=== PATIENT | female | born 1985 | race Caucasian/White ===

== ENCOUNTER 2016-08-02 05:58 | Emergency (ER) | payer BC ==
--- NOTE | 2016-08-02 06:54 | ED ---
Lower Extremity - HPI Summary HPI Summary: Pt here w/ LLE pain which started last night. Feels this in her Lt hip/groin area and it radiates down behind knee most prominently and continues down to ankle. She denies injury here and reports nothing exacerbates or alleviates sx. Tried a vicodin last night which she had left over from a visit here a few days ago for Lt sided ab pain. She has f/u for this w/ PCP in a couple of days - PCP believes she has IBS and pt has switched to a bland diet to help alleviate her GI sx (ie. indigestion, bloating, constipation alternating w/ diarrhea, etc) - better since adjusting diet. 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 No known h/o DDD or other FABIOLA injuries. She is concerned about a potential clot in her leg as she takes OBC's. Denies fever, chills, vomiting, chest pain, SOB, bleeding, bruising, back pain, dysuria, urinary frequency, flank pain, vaginal d/c . She has had nausea around her GI issues but again, reports this is better since changing diet. LMP - on this now. - History of Current Complaint Chief Complaint: EDExtremityLower Stated Complaint: LT LEG PAIN Time Seen by Provider: 08/02/16 06:35 Hx Obtained From: Patient Hx Last Menstrual Period: 1 week ago Pain Intensity: 6 - Allergies/Home Medications Allergies/Adverse Reactions: Allergies Allergy/AdvReac Type Severity Reaction Status Date / Time Prednisone Allergy See Comment Verified 07/29/16 12:01 Ibuprofen AdvReac Mild stomach Verified 07/29/16 12:01 ulcers PMH/Surg Hx/FS Hx/Imm Hx Previously Healthy: Yes Endocrine/Hematology History: Denies: Hx Anticoagulant Therapy, Hx Blood Disorders, Hx Diabetes, Hx Thyroid Disease, Hx Coagulopothy Cardiovascular History: Denies: Hx Hypertension Respiratory History: Denies: Hx Asthma, Hx Chronic Obstructive Pulmonary Disease (COPD) GI History: Reports: Hx Gastroesophageal Reflux Disease, Hx Irritable Bowel - currently being worked up by PCP Denies: Hx Ulcer Sensory History: Reports: Hx Contacts or Glasses Opthamlomology History: Reports: Hx Contacts or Glasses Psychiatric History: Reports: Hx Anxiety - high level of work stress; stress limited to the work place. - Surgical History Surgery Procedure, Year, and Place: Gall Bladder 2003 - Immunization History Date of Tetanus Vaccine: up to date per pt Date of Influenza Vaccine: this season Infectious Disease History: No Infectious Disease History: Denies: Hx Clostridium Difficile, Hx Hepatitis, Hx Human Immunodeficiency Virus (HIV), Hx of Known/Suspected MRSA, Hx Shingles, Hx Tuberculosis, History Other Infectious Disease, Traveled Outside the [place] in Last 30 Days - Family History Known Family History: Positive: Other - GM (smoker) of lung cancer; parents alive and well Negative: Cardiac Disease, Hypertension, Diabetes - Social History Occupation: Employed Full-time Lives: Alone Alcohol Use: Rare - couple times a year Hx Substance Use: No Substance Use Type: Reports: None Hx Tobacco Use: No Smoking Status (MU): Never Smoked Tobacco Have You Smoked in the Last Year: No Review of Systems Constitutional: Negative ENT: Negative Cardiovascular: Negative Respiratory: Negative Gastrointestinal: Other - see HPI Genitourinary: Negative Positive: see HPI Musculoskeletal: Other - see HPI Skin: Negative Neurological: Negative Psychological: Normal - concerned All Other Systems Reviewed And Are Negative: Yes Physical Exam Triage Information Reviewed: Yes Vital Signs On Initial Exam: Initial Vitals Temp Pulse Resp BP Pulse Ox 97.7 F 100 18 123/88 100 08/02/16 06:23 08/02/16 06:23 08/02/16 06:23 08/02/16 06:23 08/02/16 06:23 Vital Signs Reviewed: Yes Appearance: Positive: Well-Appearing, No Pain Distress, Well-Nourished Skin: Positive: Warm, Dry - no erythema, no ecchymosis, no lesions over affected area Head/Face: Positive: Normal Head/Face Inspection Eyes: Positive: Normal, EOMI, Conjunctiva Clear - anicteric sclera ENT: Positive: Normal ENT inspection, Hearing grossly normal, Pharynx normal - mucosa moist Respiratory/Lung Sounds: Positive: Clear to Auscultation, Breath Sounds Present. Negative: Rales, Rhonchi, Wheezes Cardiovascular: Positive: Normal, RRR, Pulses are Symmetrical in both Upper and Lower Extremities, S1, S2. Negative: Murmur, Rub, Leg Edema Left, Leg Edema Right Abdomen Description: Positive: No Organomegaly, Soft, Other: - generalized TTP ( mild) - no rebounding - abdominal palpation does not exacerbate LLE pain. Negative: CVA Tenderness (R), CVA Tenderness (L), Guarding Bowel Sounds: Positive: Present Musculoskeletal: Positive: Normal, Strength/ROM Intact, Pain @ - TTP over muscles of Lt lumbar region, Lt thigh and calf along LLE; pain also enhanced to a mild degree by hip rotation w/ knee flexed however pt still tolerates this well; weight bearing well; spinous pp NTTP; greater trochnater NTTP; knee w/o edema or gross deformity - no pain w/ flexin/extension; FROM ankle w/o pain Neurological: Positive: Normal, Sensory/Motor Intact, Alert, Oriented to Person Place, Time, CN Intact II-III Psychiatric: Positive: Other - blunted affect Diagnostics - Vital Signs Vital Signs Temp Pulse Resp BP Pulse Ox 08/02/16 06:23 97.7 F 100 18 123/88 100 - Laboratory Lab Statement: Any lab studies that have been ordered have been reviewed, and results considered in the medical decision making process. Lower Extremity Course/Dx - Course Course Of Treatment: no DVT on U/S - suspect muscle strain. See d/c instructions for details on care. Reviewed danger s/sx of when to return to ED. - Diagnoses Provider Diagnoses: Muscle strain Discharge - Discharge Plan Condition: Stable Disposition: HOME Prescriptions: Cyclobenzaprine TAB* [Flexeril TAB*] 10 mg PO TID PRN #15 tab PRN Reason: Pain Patient Education Materials: Muscle Strain (ED) Referrals: Garfield Solorio MD [Primary Care Provider] - Additional Instructions: Heat in the morning with gentle stretches - ice after use. You may take acetaminophen during the day and flexeril (a muscle relaxer) at night to reduce symptoms however best care will be follow-up with PCP as you may benefit from physical therapy if symptoms persist. *If you develop vomiting, change in bowel habits, weakness, fever and/or chest pain, return to ED
--- NOTE | 2016-08-02 08:12 | RAD ---
INDICATION: Atraumatic left lower extremity pain. COMPARISON: There are no prior studies available for comparison. TECHNIQUE: Multiple real-time, color flow and Doppler tracings of the left lower extremity were obtained. FINDINGS: The common femoral, femoral, profunda femoral and popliteal veins all demonstrate normal compressibility, augmentation with compression and phasic response with respiration. The posterior tibial and peroneal veins demonstrate normal compressibility and augmentation with compression. IMPRESSION: NO EVIDENCE FOR DEEP VENOUS THROMBOSIS.
[2016-08-02 08:44] VITALS: BP 128/88
== END 2016-08-02 08:44 | disposition home or self-care (01) ==
LOC: ED 05:58
DX: S73.102A Unspecified sprain of left hip, initial encounter (principal); X58.XXXA Exposure to other specified factors, initial encounter; Y92.9 Unspecified place or not applicable
CPT/HCPCS: 99282

== ENCOUNTER 2016-09-25 16:41 | Emergency (ER) | payer BC ==
[2016-09-25 16:57] VITALS: BP 114/77
[2016-09-25] MEDS ORDERED: Acetaminophen TAB* 325 MG PO ONE (19:25)
--- NOTE | 2016-09-25 19:27 | UC ---
FLU HPI - HPI Summary HPI Summary: Sore throat and chest congestion for 1 day - History of Current Complaint Chief Complaint: UCRespiratory Stated Complaint: COUGH, SORE THROAT Time Seen by Provider: 09/25/16 19:16 Hx Obtained From: Patient Hx Last Menstrual Period: [id number] ?: No Onset/Duration: Sudden Onset, Lasting Days - 1, Still Present Severity Currently: Mild Severity Initially: Mild Pain Intensity: 3 Associated Signs & Symptoms: Positive: Cough - chest congestion, Sore Throat - Allergy/Home Medications Allergies/Adverse Reactions: Allergies Allergy/AdvReac Type Severity Reaction Status Date / Time Prednisone Allergy See Comment Verified 09/25/16 16:58 Ibuprofen AdvReac Mild stomach Verified 09/25/16 16:58 ulcers Home Medications: Home Medications ALPRAZolam TAB* [Xanax TAB*] 2 PRN 09/25/16 [History] FLUoxetine CAP* [Prozac CAP*] 2 09/25/16 [History] traZODone TAB* [Desyrel TAB*] 1 09/25/16 [History] PMH/Surg Hx/FS Hx/Imm Hx Endocrine History Of: Denies: Diabetes, Thyroid Disease Cardiovascular History Of: Denies: Cardiac Disorders, Hypertension Respiratory History Of: Denies: COPD, Asthma GI/ History Of: Reports: Gastroesophageal Reflux - history of reflux x years, with 2 past upper endoscopies. Has been on PPI's Denies: Ulcer Psychological History Of: Reports: Anxiety - high level of work stress; stress limited to the work place. Other History Of: Negative For: Anticoagulant Therapy - Surgical History Surgical History: Yes Surgery Procedure, Year, and Place: Gall Bladder 2003 - Family History Known Family History: Positive: None - parents alive and well., Other - GM ( smoker) of lung cancer; parents alive and well Negative: Cardiac Disease, Hypertension, Diabetes - Social History Occupation: Employed Full-time - Deli at [employer] Lives: With Family Alcohol Use: Rare Substance Use Type: None Smoking Status (MU): Never Smoked Tobacco Have You Smoked in the Last Year: No Household Exposure Type: Cigarettes - Immunization History Most Recent Influenza Vaccination: 08/13/2013 Review of Systems Constitutional: Negative Skin: Negative Eyes: Negative ENT: Sore Throat Respiratory: Cough Cardiovascular: Negative Gastrointestinal: Negative Genitourinary: Negative Motor: Negative Neurovascular: Negative Musculoskeletal: Negative Neurological: Negative Psychological: Negative All Other Systems Reviewed And Are Negative: Yes Physical Exam Triage Information Reviewed: Yes Appearance: Well-Appearing, Well-Nourished, Pain Distress - mild Vital Signs: Initial Vital Signs Temp 100.4 F 09/25/16 16:52 Pulse 76 09/25/16 16:52 Resp 18 09/25/16 16:52 BP 114/77 09/25/16 16:52 Pulse Ox 100 09/25/16 16:52 Vital Signs Reviewed: Yes Eye Exam: Normal Eyes: Positive: Conjunctiva Clear ENT Exam: Normal ENT: Positive: Normal ENT inspection, Hearing grossly normal, Pharynx normal, TMs normal. Negative: Nasal congestion, Nasal drainage, Tonsillar swelling, Tonsillar exudate, Trismus, Muffled/hoarse voice Dental Exam: Normal Neck exam: Normal Neck: Positive: Supple, Nontender, No Lymphadenopathy Respiratory Exam: Normal Respiratory: Positive: Chest non-tender, Lungs clear, Normal breath sounds, No respiratory distress, No accessory muscle use Cardiovascular Exam: Normal Cardiovascular: Positive: RRR, No Murmur, Pulses Normal, Brisk Capillary Refill Musculoskeletal Exam: Normal Musculoskeletal: Positive: Strength Intact, ROM Intact, No Edema Neurological Exam: Normal Neurological: Positive: Alert, Muscle Tone Normal Psychological Exam: Normal Psychological: Positive: Normal Response To Family Skin Exam: Normal Diagnostics - Laboratory Diagnostic Studies Completed/Ordered: RST(-) Influenza A/B(-) Flu Course/Dx - Course Course Of Treatment: increase fluids, rest tylenol, follow with pcp - Differential Dx/Diagnosis Differential Diagnosis/HQI/PQRI: Bronchitis, Broncholiolitis, Upper Respiratory Infection Provider Diagnoses: URI Discharge - Discharge Plan Condition: Stable Disposition: HOME Patient Education Materials: Acetaminophen (By mouth), Antitussives (By mouth) , Upper Respiratory Infection (ED), Cold Symptoms (ED), Acute Cough (ED) Forms: *Work Release Referrals: Garfield Solorio MD [Primary Care Provider] - If Needed
== END 2016-09-25 20:04 | disposition home or self-care (01) ==
LOC: UCEAST 16:41
DX: J06.9 Acute upper respiratory infection, unspecified (principal); K21.9 Gastro-esophageal reflux disease without esophagitis
CPT/HCPCS: 87502; 87651; 99212; A9270-GY; G0463

== ENCOUNTER 2017-03-14 07:53 | Emergency (ER) | payer BC ==
[2017-03-14 08:07] VITALS: BP 122/82
--- NOTE | 2017-03-14 14:54 | UC ---
Moises Levy Angela, scribed for Dong Bianchi MD on 03/14/17 at 1445 . General HPI - HPI Summary HPI Summary: This pt is a 32 y/o female presenting to [facility] c/o sore throat x2 days. She notes her sore throat has been worsening and this morning she had diarrhea, nausea, and light-headedness. She notes 4-5 episodes of diarrhea, non-bloody. Pt denies vomiting, abdominal pain, nasal congestion, myalgia, recent long travel, sick contacts. Pt notes she has flu-like symptoms. - History of Current Complaint Stated Complaint: SORE THROAT Hx Obtained From: Patient Hx Last Menstrual Period: 03/06/17 Onset/Duration: Lasting Days Timing: Constant Associated Signs & Symptoms: Positive: Diarrhea, Nausea. Negative: Abdominal Pain, Cough, Fever, Vomiting - Allergy/Home Medications Allergies/Adverse Reactions: Allergies Allergy/AdvReac Type Severity Reaction Status Date / Time Prednisone Allergy See Comment Verified 03/14/17 08:01 Ibuprofen AdvReac Mild stomach Verified 03/14/17 08:01 ulcers Home Medications: Home Medications Acetaminophen TAB* [Tylenol TAB*] 650 mg PO Q6H PRN 03/14/17 [History Confirmed 03/14/17] Desogestrel & Ethinyl Estradio [Juleber 0.15-30 mg-Mcg] 1 tab PO DAILY 03/14/17 [History Confirmed 03/14/17] PMH/Surg Hx/FS Hx/Imm Hx Other History Of: Negative For: Anticoagulant Therapy - Surgical History Surgical History: Yes Surgery Procedure, Year, and Place: Gall Bladder 2003 - Family History Known Family History: Positive: None - parents alive and well., Other - GM ( smoker) of lung cancer; parents alive and well Negative: Cardiac Disease, Hypertension, Diabetes - Social History Alcohol Use: Rare Substance Use Type: None Smoking Status (MU): Never Smoked Tobacco Have You Smoked in the Last Year: No Household Exposure Type: Cigarettes - Immunization History Most Recent Influenza Vaccination: 04/2016 Review of Systems Constitutional: Negative Skin: Negative Eyes: Negative ENT: Sore Throat Respiratory: Negative Gastrointestinal: Diarrhea, Nausea Motor: Negative Musculoskeletal: Negative Neurological: Negative All Other Systems Reviewed And Are Negative: Yes Physical Exam Triage Information Reviewed: Yes Vital Signs: Initial Vital Signs Temp 98.4 F 03/14/17 08:03 Pulse 89 03/14/17 08:03 Resp 16 03/14/17 08:03 BP 122/82 03/14/17 08:03 Pulse Ox 99 03/14/17 08:03 Vital Signs Reviewed: Yes - Additional Comments The patient is well-nourished in no acute distress and in no acute pain. The skin is warm and dry and skin color reflects adequate perfusion. HEENT: The head is normocephalic and atraumatic. The pupils are equal and reactive. The conjunctivae are clear and without drainage. Nares are patent and without drainage. Mouth reveals moist mucous membranes. The uvula is swollen. The external ears are intact. The ear canals are patent and without drainage. The tympanic membranes are intact. Neck is supple with full range of motion and non-tender. There is bilateral cervical adenopathy. Respiratory: Chest is non-tender. Lungs are clear to auscultation and breath sounds are symmetrical and equal. Cardiovascular: Hear is regular rate and rhythm. There is no murmur or rub auscultated. There is no peripheral edema and pulses are symmetrical and equal. Abdomen: The abdomen is soft and non-tender. Musculoskeletal: There is no back pain noted. Extremities are non-tender with full range of motion. There is good capillary refill. Neurological: Patient is alert and oriented to person, place and time. The patient has symmetrical motor strength in all four extremities. Psychiatric: The patient has an appropriate affect and does not exhibit any anxiety or depression. Course/Dx - Course Course Of Treatment: Strep test was negative. Pt will be discharged with amoxicillin. - Differential Dx - Multi-Symptom Provider Diagnoses: Phargyngitis. Discharge - Discharge Plan Condition: Stable Disposition: HOME Prescriptions: Amoxicillin PO (*) [Amoxicillin 500 MG CAP*] 500 mg PO TID #30 cap Patient Education Materials: Pharyngitis (ED) Referrals: Garfield Solorio MD [Primary Care Provider] - Additional Instructions: Please follow up with your PCP to make sure your symptoms are improving. The documentation as recorded by the Moises gannon Angela accurately reflects the service I personally performed and the decisions made by me, Dong Bianchi MD.
== END 2017-03-14 08:51 | disposition home or self-care (01) ==
LOC: UCEAST 07:53
DX: J02.9 Acute pharyngitis, unspecified (principal); Z88.6 Allergy status to analgesic agent; Z88.9 Allergy status to unspecified drugs, medicaments and biological substances
CPT/HCPCS: 87651; 99212; G0463

== ENCOUNTER 2017-05-19 07:55 | Emergency (ER) | payer BC ==
[2017-05-19 08:01] VITALS: BP 132/78
--- NOTE | 2017-05-19 09:12 | RAD ---
Indication: RIGHT heel pain for one week now going up calf. Comparison: None. Technique: AP, lateral, and oblique views RIGHT foot. REPORT AND IMPRESSION: Normal articular alignment and preserved joint spaces. Negative for fracture or radiographic stigmata of stress reaction. Small plantar fascia origin bone spur. Mild soft tissue swelling at the plantar aspect of the foot.
--- NOTE | 2017-05-19 09:45 | RAD ---
INDICATION: RIGHT heel pain radiates up catheter. COMPARISON: No relevant prior exams available on the [facility] PACS for comparison. TECHNIQUE: Gaitan scale, color Doppler, and spectral analysis of the deep veins of the RIGHT lower extremity. Vessel compression, phasicity, and augmentation assessed. REPORT: The RIGHT common femoral, great saphenous, profunda femoral, femoral, popliteal, peroneal, and posterior tibial veins are patent. Patency of the LEFT common femoral vein documented. IMPRESSION: No evidence for RIGHT lower extremity deep venous thrombosis.
[2017-05-19] MEDS ORDERED: HYDROcodone/ACETAMIN 5-325 MG* 1 TAB PO ONE (10:34)
--- NOTE | 2017-05-21 08:06 | ED ---
Moises Levy Angela, scribed for Krunal Agudelo MD on 05/19/17 at 0841 . Lower Extremity - HPI Summary HPI Summary: This pt is a 32 y/o female [place] [facility] [place]/o atraumatic right heel pain x1 week. Pt reports that her pain now shoots up her right calf. Her pain is aggravated when bearing weight. She denies any trauma to her foot, weakness or numbness. Pt denies hx of heel spurs. Pt is currently on control pills, prozac, and xanax (PRN), protonix, trazodone. PSHx: cholecystectomy. Allergies: ibuprofen and prednisone. - History of Current Complaint Chief Complaint: EDExtremityLower Stated Complaint: RT FOOT/LEG PAIN Time Seen by Provider: 05/19/17 08:19 Hx Obtained From: Patient Hx Last Menstrual Period: 03/06/17 Mechanism Of Injury: Unknown Onset of Pain: Days Onset/Duration: Days Severity Currently: Moderate Pain Intensity: 7 Pain Scale Used: 0-10 Numeric Timing: Constant, Lasting Days Location: Radiates To - right calf Associated Signs And Symptoms: Negative: Knee Pain Aggravating Factor(s): Weight Bearing Alleviating Factor(s): Nothing Able to Bear Weight: Yes - Allergies/Home Medications Allergies/Adverse Reactions: Allergies Allergy/AdvReac Type Severity Reaction Status Date / Time Prednisone Allergy See Comment Verified 03/14/17 08:01 Ibuprofen AdvReac Mild stomach Verified 03/14/17 08:01 ulcers PMH/Surg Hx/FS Hx/Imm Hx Endocrine/Hematology History: Denies: Hx Anticoagulant Therapy, Hx Blood Disorders, Hx Diabetes, Hx Thyroid Disease Cardiovascular History: Denies: Hx Hypertension Respiratory History: Denies: Hx Asthma, Hx Chronic Obstructive Pulmonary Disease (COPD) GI History: Reports: Hx Gastroesophageal Reflux Disease, Hx Irritable Bowel - currently being worked up by PCP Denies: Hx Ulcer Sensory History: Reports: Hx Contacts or Glasses Opthamlomology History: Reports: Hx Contacts or Glasses Psychiatric History: Reports: Hx Anxiety - high level of work stress; stress limited to the work place. - Surgical History Surgery Procedure, Year, and Place: Gall Bladder 2003 - Immunization History Date of Tetanus Vaccine: up to date per pt Date of Influenza Vaccine: this season Infectious Disease History: No Infectious Disease History: Denies: Hx Clostridium Difficile, Hx Hepatitis, Hx Human Immunodeficiency Virus (HIV), Hx of Known/Suspected MRSA, Hx Shingles, Hx Tuberculosis, History Other Infectious Disease, Traveled Outside the [place] in Last 30 Days - Family History Known Family History: Positive: Other - GM (smoker) of lung cancer; parents alive and well Negative: Cardiac Disease, Hypertension, Diabetes - Social History Alcohol Use: Rare Hx Substance Use: No Substance Use Type: Reports: None Hx Tobacco Use: No Smoking Status (MU): Never Smoked Tobacco Have You Smoked in the Last Year: No Review of Systems Negative: Fever, Chills Eyes: Negative ENT: Negative Cardiovascular: Negative Respiratory: Negative Genitourinary: Negative Positive: Other - right heel pain, right calf pain Skin: Negative Negative: Headache, Weakness, Numbness All Other Systems Reviewed And Are Negative: Yes Physical Exam - Summary Physical Exam Summary: VITAL SIGNS: Reviewed. GENERAL: Patient is a well-developed and nourished female who is lying comfortable in the stretcher. Patient is not in any acute respiratory distress. HEAD AND FACE: No signs of trauma. No ecchymosis, hematomas or skull depressions. No sinus tenderness. EYES: PERRLA, EOMI x 2, No injected conjunctiva, no nystagmus. EARS: Hearing grossly intact. Ear canals and tympanic membranes are within normal limits. MOUTH: Oropharynx within normal limits. NECK: Supple, trachea is midline, no adenopathy, no JVD, no carotid bruit, no c- spine tenderness, neck with full ROM. CHEST: Symmetric, no tenderness at palpation LUNGS: Clear to auscultation bilaterally. No wheezing or crackles. CVS: Regular rate and rhythm, S1 and S2 present, no murmurs or gallops appreciated. ABDOMEN: Soft, non-tender. No signs of distention. No rebound no guarding, and no masses palpated. Bowel sounds are normal. EXTREMITIES: FROM in all major joints, no edema, no cyanosis or clubbing. There is positive right calf pain. There is positive Homans's sign. Positive right heel pain. NEURO: Alert and oriented x 3. No acute neurological deficits. Speech is normal and follows commands. SKIN: Dry and warm Triage Information Reviewed: Yes Vital Signs On Initial Exam: Initial Vitals Temp Pulse Resp BP Pulse Ox 98.1 F 94 20 132/78 97 05/19/17 07:58 05/19/17 07:58 05/19/17 07:58 05/19/17 07:58 05/19/17 07:58 Vital Signs Reviewed: Yes Diagnostics - Vital Signs Vital Signs Temp Pulse Resp BP Pulse Ox 05/19/17 07:58 98.1 F 94 20 132/78 97 - Laboratory Lab Statement: Any lab studies that have been ordered have been reviewed, and results considered in the medical decision making process. - Radiology Right Foot XR Xray Interpretation: Positive (See Comments) - IMPRESSION: Normal articular alignment and preserved joint spaces. Negative for fracture or radiographic stigmata of stress reaction. Small plantar fascia origin bone spur. Mild soft tissue swelling at the plantar aspect of the foot. ED physician has reviewed this radiology report and agrees. Radiology Interpretation Completed By: Radiologist - Additional Comments Diagnostic Additional Comments: Venous Doppler Study (RIGHT), per radiologist: IMPRESSION: No evidence for RIGHT lower extremity deep venous thrombosis. ED physician has reviewed this radiology report and agrees. Re-Evaluation - Re-Evaluation First Eval Re-Evaluation Time: 10:36 Comment: I reviewed the XR and US results with the pt. Lower Extremity Course/Dx - Course Assessment/Plan: This pt is a 32 y/o female presenting to [facility] c/o atraumatic right heel pain x1 week. Pt reports that her pain now shoots up her right calf. Her pain is aggravated when bearing weight. She denies any trauma to her foot, weakness or numbness. Pt denies hx of heel spurs. Pt is currently on control pills, prozac, and xanax (PRN), protonix, trazodone. XR of the right foot shows no fracture or dislocations. Ultrasound is negative for DVT. I believe her pain is secondary to plantar fasciitis. However, the pt is allergic to prednisone and NSAIDs, therefore, she was given 1 tablet for [place]. Pt will be discharged home with follow up from her PCP. She was advised to use ice her RLE. Pt is hemodynamically stable, alert and oriented x3. PSHx: cholecystectomy. Allergies: ibuprofen and prednisone. - Diagnoses Differential Diagnosis/HQI/PQRI: Positive: Cellulitis, Contusion, DVT, Foreign Body, Fracture (Closed), Infection, Sprain, Strain, Tendonitis Provider Diagnoses: Plantar fasciitis Discharge - Discharge Plan Condition: Stable Disposition: HOME Prescriptions: HYDROcodone/ACETAMIN 5-325 MG* [[place] 5-325 TAB*] 1 tab PO Q6H PRN #12 tab MDD 4 PRN Reason: Pain Patient Education Materials: Plantar Fasciitis (ED) Referrals: Garfield Solorio MD [Primary Care Provider] - Additional Instructions: Please follow up with your primary care provider. The documentation as recorded by the Moises gannon Angela accurately reflects the service I personally performed and the decisions made by , Krunal Agudelo MD.
== END 2017-05-19 11:00 | disposition home or self-care (01) ==
LOC: ED 07:55
DX: M72.2 Plantar fascial fibromatosis (principal)
CPT/HCPCS: 99282

== ENCOUNTER 2017-08-21 10:18 | Emergency (ER) | payer BC ==
[2017-08-21 10:33] VITALS: BP 118/73
--- NOTE | 2017-08-21 11:09 | UC ---
Back Pain HPI - HPI Summary HPI Summary: Pt presents with low back pain. She tells me that 2 days ago, while working, she developed lower back pain. 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 She has been taking tylenol for pain with minimal relief. Tells me that she cannot take NSAIDs due to hx of stomach ulcer. No bowel or bladder dysfunction. Denies fever, chills, SOB, chest pain, abdominal pain, n/v/d/c, dysuria, hematuria, flank pain, numbness, tingling, or radiation of symptoms. - History of Current Complaint Chief Complaint: UCBackPain Stated Complaint: BACK PAIN Time Seen by Provider: 08/21/17 10:51 Hx Obtained From: Patient Hx Last Menstrual Period: 07/16 Onset/Duration: Gradual Onset Timing: Constant Severity Initially: Moderate Severity Currently: Moderate Pain Intensity: 8 Pain Scale Used: 0-10 Numeric Aggravating Factor(s): Movement, Lifting Alleviating Factor(s): Rest, Position - Allergies/Home Medications Allergies/Adverse Reactions: Allergies Allergy/AdvReac Type Severity Reaction Status Date / Time Prednisone Allergy See Comment Verified 08/21/17 10:33 Ibuprofen AdvReac Mild stomach Verified 08/21/17 10:33 ulcers PMH/Surg Hx/FS Hx/Imm Hx GI/ History: Gastroesophageal Reflux, Ulcer Psychological History: Anxiety, Depression Other History Of: Negative For: Anticoagulant Therapy - Surgical History Surgical History: Yes Surgery Procedure, Year, and Place: Gall Bladder 2003 - Family History Known Family History: Positive: None - parents alive and well., Other - GM ( smoker) of lung cancer; parents alive and well Negative: Cardiac Disease, Hypertension, Diabetes - Social History Occupation: Employed Full-time Lives: With Family Alcohol Use: Rare Substance Use Type: None Smoking Status (MU): Never Smoked Tobacco Have You Smoked in the Last Year: No Household Exposure Type: Cigarettes - Immunization History Most Recent Influenza Vaccination: 04/2016 Review of Systems Constitutional: Negative Respiratory: Negative Cardiovascular: Negative Gastrointestinal: Negative Genitourinary: Negative Neurovascular: Negative Musculoskeletal: Other: - LBP All Other Systems Reviewed And Are Negative: Yes Physical Exam Triage Information Reviewed: Yes Appearance: Well-Appearing, No Pain Distress, Obese Vital Signs: Initial Vital Signs Temp 98.0 F 08/21/17 10:28 Pulse 82 08/21/17 10:28 Resp 18 08/21/17 10:28 BP 118/73 08/21/17 10:28 Pulse Ox 100 08/21/17 10:28 Vital Signs Reviewed: Yes Neck: Positive: Supple, Nontender, Other: - FROM Respiratory: Positive: Lungs clear, Normal breath sounds, No respiratory distress Cardiovascular: Positive: RRR, No Murmur, Pulses Normal Abdomen Description: Positive: Nontender, No Organomegaly, Soft. Negative: CVA Tenderness (R), CVA Tenderness (L), Distended, Guarding Bowel Sounds: Positive: Present Musculoskeletal: Positive: Strength Intact - B/L LEs including dorsiflexion and plantar flexion, ROM Intact - B/L LEs including dorsiflexion and plantar flexion , No Edema, ROM Limited @ - Spine - flexion to ~75deg before pain., Other: - SLR positive on right. MAXIME negative for groin/hip pain. TTP over paraspinal muscles of lower back. Neurological: Positive: Alert, Other: - Sensations L3-S1 intact and symmetric bilaterally. Patellar and ankle reflexes intact bilaterally Psychological: Positive: Age Appropriate Behavior Skin: Negative: rashes, significant lesion(s) Back Pain Course/Dx - Course Course Of Treatment: Suspect lower back muscle spasm. Flexeril at bedtime prn. Keep active and heat and tylenol during the day for pain. Exercise information provided. UA trace ketone, trace protein, 1+ bili. Urine preg negative. - Differential Dx/Diagnosis Provider Diagnoses: Lower back muscle spasm Discharge - Discharge Plan Condition: Stable Disposition: HOME Prescriptions: Cyclobenzaprine TAB* [Flexeril 10 MG TAB*] 10 mg PO BEDTIME PRN #10 tab PRN Reason: Pain Patient Education Materials: Muscle Spasm (ED), Lower Back Exercises (ED) Forms: *Work Release Referrals: Garfield Solorio MD [Primary Care Provider] - Additional Instructions: If you develop a fever, shortness of breath, chest pain, new or worsening symptoms - please call your PCP or go to the ED.
== END 2017-08-21 11:35 | disposition home or self-care (01) ==
LOC: UCEAST 10:18
DX: M62.830 Muscle spasm of back (principal); K21.9 Gastro-esophageal reflux disease without esophagitis
CPT/HCPCS: 81003; 81025; 99212; G0463